=== PATIENT | male | born 1960 | race Caucasian/White ===

== ENCOUNTER 2024-07-10 12:40 | Emergency (ER) | payer MEDICAID ==
[~2024-07-10] VITALS: Ht 172.7 cm; Wt 86.4 kg
[2024-07-10 12:52] VITALS: BP 156/90; PULSE 70; RESP 18; TEMP 97.9; O2SAT 99
== END 2024-07-10 14:02 | disposition home or self-care (01) ==
LOC: EMS 12:40
DX: F10.239 Alcohol dependence with withdrawal, unspecified (principal); F12.90 Cannabis use, unspecified, uncomplicated; Y90.9 Presence of alcohol in blood, level not specified
CPT/HCPCS: 99282; Z7502

== ENCOUNTER 2024-08-24 00:20 | Emergency (ER) | payer SELFPAY ==
[~2024-08-24] VITALS: Ht 172.7 cm; Wt 86.4 kg
[2024-08-24 00:35] VITALS: TEMP 98.4
[2024-08-24 01:24] LABS: BASOPHILS % (AUTO) 0.8 % (0.0-2.0); EOSINOPHILS % (AUTO) 1.9 % (1.0-6.0); HEMATOCRIT 45.1 % (41-53); HEMOGLOBIN 15.2 g/dL (13.5-17.5); LYMPHOCYTES # (AUTO) 0.8 K/uL (1.0-4.8); LYMPHOCYTES % (AUTO) 16.3 % (22.0-44.0); MEAN CORPUSCULAR HEMOGLOBIN 32.1 pg (26.0-34.0); MEAN CORPUSCULAR HGB CONC 33.8 G/dL (31.0-37.0); MEAN CORPUSCULAR VOLUME 95 fL (80-100); MONOCYTES # (AUTO) 0.4 K/uL (0.1-1.0); MONOCYTES % (AUTO) 8.3 % (2.0-9.0); NEUTROPHILS # (AUTO) 3.8 K/uL (1.8-7.7); NEUTROPHILS % (AUTO) 72.7 % (40.0-70.0); PLATELET COUNT (AUTO) 210 K/uL (150-450); RED BLOOD CELL COUNT(AUTO) 4.74 MIL/uL (4.50-5.90); RED CELL DISTRIBUTION WIDTH 13.1 % (11.5-14.5); WHITE BLOOD COUNT (AUTO) 5.2 K/uL (4.5-11.0)
[2024-08-24 01:26] LABS: ANION GAP 5 mmol/L (8-16); CALCIUM, TOTAL 8.7 mg/dL (8.8-10.5); CARBON DIOXIDE 28 mmol/L (22-29); CHLORIDE 95 mmol/L (98-107); CREATININE 0.83 mg/dL (0.60-1.30); GLOMERULAR FILTR. RATE CALC > 60 mL/min (>60); GLUCOSE,RANDOM 107 mg/dL (70-110); SODIUM SERUM 128 mmol/L (136-145); UREA NITROGEN, BLOOD 6 mg/dL (7-18)
[2024-08-24] MEDS: LIDOCAINE 1%/EPI 1:200,000/PF 10 ML VIAL SQ ONE (01:27)
[2024-08-24 01:35] LABS: ALCOHOL, BLOOD (SERUM) 215 mg/dL (0-10)
[2024-08-24 01:46] VITALS: BP 137/86; PULSE 89; RESP 16; O2SAT 97
[2024-08-24] MEDS ORDERED: MAGNESIUM SULFATE 2 GM, MVI, ADULT NO.1 WITH VIT K 10 ML, THIAMINE 100 MG, FOLIC ACID 1... IV ONE (03:15)
[2024-08-24 03:39] LABS: TROPONIN I-HIGH SENSITIVITY 7 ng/L (<76)
[2024-08-24 03:48] LABS: B-TYPE NATRIURETIC PEPTIDE 42 pg/mL (0-100)
== END 2024-08-24 02:00 | disposition left against medical advice (07) ==
LOC: EMS 00:26
DX: S01.01XA Laceration without foreign body of scalp, initial encounter (principal); F10.129 Alcohol abuse with intoxication, unspecified; F12.90 Cannabis use, unspecified, uncomplicated; M54.2 Cervicalgia; W01.0XXA Fall on same level from slipping, tripping and stumbling without subsequent striking against object, initial encounter; Y93.89 Activity, other specified; Y92.89 Other specified places as the place of occurrence of the external cause; Y99.8 Other external cause status; Y90.6 Blood alcohol level of 120-199 mg/100 ml
CPT/HCPCS: 99285; 70450; 80048; 83880; 84484; 85025; 36415; 72125; 93005; 96372; G0480; J3490; J3411; J3475; J7030

== ENCOUNTER 2024-08-31 13:12 | Emergency (ER) | payer MEDICAID ==
[~2024-08-31] VITALS: Ht 175.3 cm; Wt 85.0 kg
[2024-08-31 13:19] VITALS: BP 145/88; PULSE 78; RESP 16; TEMP 98.1; O2SAT 98
== END 2024-08-31 13:57 | disposition home or self-care (01) ==
LOC: EMS 13:12
DX: S01.01XD Laceration without foreign body of scalp, subsequent encounter (principal); F12.90 Cannabis use, unspecified, uncomplicated; F10.20 Alcohol dependence, uncomplicated; Z48.02 Encounter for removal of sutures; X58.XXXD Exposure to other specified factors, subsequent encounter; Y90.9 Presence of alcohol in blood, level not specified
CPT/HCPCS: 99281; Z7502

== ENCOUNTER 2024-09-05 14:16 | Emergency (ER) | payer MEDICAID ==
[~2024-09-05] VITALS: Ht 175.3 cm; Wt 84.1 kg
[2024-09-05 14:21] VITALS: BP 141/81; PULSE 78; RESP 18; TEMP 98; O2SAT 99
[2024-09-05] MEDS: BACITRACIN 0.9 GM PACKET OINTMENT TP ONE (16:26)
[2024-09-05] MEDS ORDERED: BACI28.410 TP (16:51)
== END 2024-09-05 16:57 | disposition home or self-care (01) ==
LOC: EMS 14:16
DX: S01.01XA Laceration without foreign body of scalp, initial encounter (principal); F12.90 Cannabis use, unspecified, uncomplicated; X58.XXXA Exposure to other specified factors, initial encounter; Y93.89 Activity, other specified; Y92.89 Other specified places as the place of occurrence of the external cause; Y99.8 Other external cause status
CPT/HCPCS: 70250; 99283

== ENCOUNTER 2024-09-08 18:25 | Emergency (ER) | payer MEDICAID ==
[~2024-09-08] VITALS: Ht 175.3 cm; Wt 95.0 kg
[~2024-09-08 18:25] MED LIST: BACI28.410 TP
[2024-09-08 18:30] VITALS: BP 132/96; PULSE 69; RESP 18; TEMP 98.7; O2SAT 100
[2024-09-08] MEDS ORDERED: IBUP-1492 PO (20:43)
[2024-09-08] MEDS: IBUPROFEN 600 MG TABLET PO ONE (21:03)
[2024-09-08] MEDS: PERTUSS(ACELL),DIPH,TET/PF 0.5 ML SYRINGE [ADULT] IM. ONE (21:15)
== END 2024-09-08 22:01 | disposition home or self-care (01) ==
LOC: EMS 18:25
DX: S01.01XA Laceration without foreign body of scalp, initial encounter (principal); F12.90 Cannabis use, unspecified, uncomplicated; F10.20 Alcohol dependence, uncomplicated; R51.9 Headache, unspecified; M54.2 Cervicalgia; W26.8XXA Contact with other sharp object(s), not elsewhere classified, initial encounter; Y93.89 Activity, other specified; Y92.89 Other specified places as the place of occurrence of the external cause; Y99.8 Other external cause status
CPT/HCPCS: 12002; 70450; 72125; 90471; 90715; 99283; 99285

== ENCOUNTER 2024-09-18 09:54 | Emergency (ER) | payer MEDICAID ==
[~2024-09-18] VITALS: Ht 172.7 cm; Wt 81.8 kg
[~2024-09-18 09:54] MED LIST changes: +IBUP-1492 PO
[2024-09-18 10:11] VITALS: BP 150/94; PULSE 72; RESP 16; TEMP 98.2; O2SAT 100
[2024-09-18] MEDS ORDERED: SULF-261 PO (11:16)
[2024-09-18] MEDS ORDERED: CEPH-558 PO (11:16)
[2024-09-18] MEDS: SULFAMETHOX/TRIMETH DS 800-160 MG/TABLET PO ONE (11:28)
[2024-09-18] MEDS: BACITRACIN 28 GM OINTMENT TP ONE (11:29)
[2024-09-18] MEDS: CEPHALEXIN MONOHYDRATE 500 MG CAPSULE PO ONE (11:29)
== END 2024-09-18 12:02 | disposition home or self-care (01) ==
LOC: EMS 09:54
DX: S01.01XD Laceration without foreign body of scalp, subsequent encounter (principal); Z48.02 Encounter for removal of sutures; F12.90 Cannabis use, unspecified, uncomplicated; X58.XXXD Exposure to other specified factors, subsequent encounter
CPT/HCPCS: 99284; Z7502; Z7610

== ENCOUNTER 2024-09-19 07:02 | Emergency (ER) | payer MEDICAID ==
[~2024-09-19] VITALS: Ht 172.7 cm; Wt 84.1 kg
[~2024-09-19 07:02] MED LIST changes: +CEPH-558 PO; +SULF-261 PO
[2024-09-19 07:10] VITALS: TEMP 98.7
[2024-09-19 08:12] VITALS: BP 144/80; PULSE 74; RESP 18; O2SAT 99
== END 2024-09-19 08:16 | disposition home or self-care (01) ==
LOC: EMS 07:08
DX: Z48.00 Encounter for change or removal of nonsurgical wound dressing (principal); F12.90 Cannabis use, unspecified, uncomplicated
CPT/HCPCS: 99282; Z7502

== ENCOUNTER 2024-10-23 13:17 | Emergency (ER) | payer MEDICAID ==
[~2024-10-23] VITALS: Ht 175.3 cm; Wt 90.0 kg
[~2024-10-23 13:17] MED LIST changes: -BACI28.410 TP; -IBUP-1492 PO
[2024-10-23 14:30] LABS: BASOPHILS % (AUTO) 0.7 % (0.0-2.0); EOSINOPHILS % (AUTO) 0.3 % (1.0-6.0); HEMATOCRIT 45.4 % (41-53); HEMOGLOBIN 15.2 g/dL (13.5-17.5); LYMPHOCYTES # (AUTO) 1.4 K/uL (1.0-4.8); LYMPHOCYTES % (AUTO) 15.1 % (22.0-44.0); MEAN CORPUSCULAR HEMOGLOBIN 30.6 pg (26.0-34.0); MEAN CORPUSCULAR HGB CONC 33.4 G/dL (31.0-37.0); MEAN CORPUSCULAR VOLUME 92 fL (80-100); MONOCYTES # (AUTO) 0.3 K/uL (0.1-1.0); MONOCYTES % (AUTO) 3.1 % (2.0-9.0); NEUTROPHILS # (AUTO) 7.6 K/uL (1.8-7.7); NEUTROPHILS % (AUTO) 80.8 % (40.0-70.0); PLATELET COUNT (AUTO) 196 K/uL (150-450); RED BLOOD CELL COUNT(AUTO) 4.95 MIL/uL (4.50-5.90); RED CELL DISTRIBUTION WIDTH 12.9 % (11.5-14.5); WHITE BLOOD COUNT (AUTO) 9.4 K/uL (4.5-11.0)
[2024-10-23 14:44] LABS: BILIRUBIN,DIRECT 0.2 mg/dL (0.00-0.20); BILIRUBIN,TOTAL 0.6 mg/dL (0.1-1.0)
[2024-10-23] MEDS: ONDANSETRON HCL 4 MG/2 ML VIAL IVP ONE ×2 (14:44→17:58)
[2024-10-23] MEDS: SODIUM CHLORIDE 0.9% 1,000 ML IV ONE (14:44)
[2024-10-23 15:05] LABS: ANION GAP 11 mmol/L (8-16); CALCIUM, TOTAL 9.2 mg/dL (8.8-10.5); CARBON DIOXIDE 25 mmol/L (22-29); CHLORIDE 102 mmol/L (98-107); CREATININE 0.75 mg/dL (0.60-1.30); GLOMERULAR FILTR. RATE CALC > 60 mL/min (>60); GLUCOSE,RANDOM 145 mg/dL (70-110); SODIUM SERUM 138 mmol/L (136-145); UREA NITROGEN, BLOOD 10 mg/dL (7-18)
[2024-10-23 15:06] LABS: LIPASE 37 U/L (16-77)
[2024-10-23 15:16] LABS: ALCOHOL, BLOOD (SERUM) < 3 mg/dL (0-10)
[2024-10-23 15:27] LABS: APPEARANCE,URINE CLEAR (CLEAR); BILIRUBIN,URINE NEGATIVE (NEGATIVE); COLOR,URINE LIGHT YELLOW (YELLOW); GLUCOSE, URINE (UA) 70-100 mg/dL (NEGATIVE); KETONES,URINE NEGATIVE (NEGATIVE); LEUKOCYTE ESTERASE ,URINE NEGATIVE (NEGATIVE); NITRATE,URINE NEGATIVE (NEGATIVE); OCCULT BLOOD,URINE NEGATIVE (NEGATIVE); PROTEIN,URINE TRACE mg/dL (NEGATIVE); SPECIFIC GRAVITIY, URINE 1.018 (1.003-1.030); UROBILINOGEN,URINE <=1.0 mg/dL (<=1.0)
[2024-10-23 15:32] LABS: AMPHET/METH SCREEN,URINE NEGATIVE (NEGATIVE); BARBITURATE SCREEN, URINE NEGATIVE (NEGATIVE); BENZODIAZEPINES SCREEN,URINE NEGATIVE (NEGATIVE); CANNABINOID SCREEN,URINE NEGATIVE (NEGATIVE); COCAINE SCREEN,URINE NEGATIVE (NEGATIVE); METHADONE SCREEN, URINE NEGATIVE (NEGATIVE); OPIATE SCREEN,URINE NEGATIVE (NEGATIVE); PHENCYCLIDINE SCREEN,URINE NEGATIVE (NEGATIVE)
[2024-10-23 15:48] LABS: ALCOHOL, URINE DRUG SCREEN NEGATIVE (NEGATIVE)
[2024-10-23 15:56] LABS: BACTERIA,URINE None Seen /HPF (None Seen); RBC,URINE None Seen /HPF (0-2); SQUAMOUS EPITHELIAL CELL,UR Rare /LPF (None Seen); WBC,URINE None Seen /HPF (0-5)
[2024-10-23 17:00] VITALS: BP 145/101; PULSE 86; RESP 16; TEMP 98.1; O2SAT 96
[2024-10-23] MEDS: FAMOTIDINE 20 MG/2 ML VIAL IVP ONE (17:57)
[2024-10-23] MEDS ORDERED: FAMO20 PO (18:18)
[2024-10-23] MEDS ORDERED: ONDA-104 PO (18:18)
== END 2024-10-23 18:40 | disposition home or self-care (01) ==
LOC: EMS 13:17
DX: K29.70 Gastritis, unspecified, without bleeding (principal); F12.90 Cannabis use, unspecified, uncomplicated
CPT/HCPCS: 99284; 96374; 96375; 80048; 80076; 81001; 83690; 85025; 36415; 96376; 80307; G0480; J3490; J2405; J7030; 81003